=== PATIENT | female | born 1960 | race African-American/Black ===

== ENCOUNTER 2018-06-05 12:22 | Emergency (ER) | payer MEDICAID, OTHER ==
[~2018-06-05] VITALS: Ht 172.7 cm; Wt 72.0 kg
[2018-06-05 16:30] VITALS: BP 170/91
== END 2018-06-05 17:32 | disposition home or self-care (01) ==
LOC: ER 12:22
DX: Z51.89 Encounter for other specified aftercare (principal)
CPT/HCPCS: 99283